=== PATIENT | female | born 1940 ===

== ENCOUNTER 2022-12-09 06:11 | Day surgery (SDC) | payer OTHER ==
[~2022-12-09] VITALS: Ht 142.2 cm; Wt 49.9 kg
[~2022-12-09 06:11] MED LIST: ACID REDUCER20 M1 PO; ANASTROZOLE1 MG PO; GABAPENTIN100 M2 PO; LOSARTAN-HCTZ1 EAC2 PO; METFORMIN HCL850 M1 PO; MULTIPLE VITAM1 EAC2 PO; NORVASC2.5 M1 PO; ROSUVASTATIN CAL5 MG PO
== END 2022-12-09 10:10 | disposition home or self-care (01) ==
LOC: CIR.AMB 06:11
PROVIDERS: ATTEND Orthopaedic Surgery Hand Surgery
DX: M65.342 Trigger finger, left ring finger (principal); Z20.822 Contact with and (suspected) exposure to COVID-19; I10 Essential (primary) hypertension; E11.9 Type 2 diabetes mellitus without complications; Z79.84 Long term (current) use of oral hypoglycemic drugs